=== PATIENT | male | born 1985 | race American Indian/Alaskan Native ===

== ENCOUNTER 2024-02-17 12:12 | Outpatient (CLI) | payer OTHER | END 2024-02-17 23:59 | disposition home or self-care (01) | LOC: MRI 12:12 | PROVIDERS: ATTEND Physician Assistant Medical | DX: S46.292A Other injury of muscle, fascia and tendon of other parts of biceps, left arm, initial encounter (principal); X58.XXXA Exposure to other specified factors, initial encounter; Y93.89 Activity, other specified; Y92.89 Other specified places as the place of occurrence of the external cause; Y99.8 Other external cause status | CPT/HCPCS: 73221 ==

== ENCOUNTER 2024-04-25 05:28 | Day surgery (SDC) | payer OTHER ==
[2024-04-13 11:47] LABS: BASOPHILS # (AUTO) 0.1 X10'3 (0-0.2); BASOPHILS % (AUTO) 1.1 % (0-1); EOSINOPHILS # (AUTO) 0.2 X10'3 (0-0.9); EOSINOPHILS % (AUTO) 3.6 % (0-6); LYMPHOCYTES # (AUTO) 2.3 X10'3 (1.1-4.8); MEAN CORPUSCULAR HEMOGLOBIN 31.8 PG (27.0-31.0); MEAN CORPUSCULAR HGB CONC 34.7 g/dL (33.0-36.5); MEAN CORPUSCULAR VOLUME 91.6 FL (78-98); MEAN PLATELET VOLUME 7.3 FL (7.4-10.4); MONOCYTES # (AUTO) 0.7 X10'3 (0-0.9); MONOCYTES % (AUTO) 11.3 % (2-12); NEUTROPHILS # (AUTO) 3.2 X10'3 (1.8-7.7); PRE OP HEMATOCRIT 52.2 % (42.0-52.0); PRE OP PLATELET COUNT 214 X10'3 (140-440); PRE OP WHITE BLOOD COUNT 6.6 10'3 (4.8-10.8); RED CELL DISTRIBUTION WIDTH 13.5 % (11.5-14.5)
[2024-04-13 11:52] LABS: PRE OP HEMOGLOBIN 18.1 g/dL (14.0-17.9)
[2024-04-13 12:10] LABS: PRE OP PROTIME 10.7 SECONDS (9.0-12.0)
[2024-04-13 12:20] LABS: ALBUMIN/GLOBULIN RATIO 1.3 (1.1-1.5); ALKALINE PHOSPHATASE 83 IU/L (46-116); BLOOD UREA NITROGEN 12 MG/DL (7-18); BUN/CREATININE RATIO 9.4 (10.0-20.0); CALCIUM 9.7 MG/DL (8.5-10.1); CHLORIDE 101 MMOL/L (99-107); CREATININE 1.27 MG/DL (0.60-1.10); PRE OP ALT 54 U/L (30-65); PRE OP ANION GAP 8 (8-16); PRE OP AST 23 U/L (10-37); PRE OP BILIRUB, TOTAL 0.8 MG/DL (0.0-1.0); PRE OP GLUCOSE 84 MG/DL (70-104); PRE OP POTASSIUM 4.6 MMOL/L (3.4-5.1); PRE OP SODIUM 138 MMOL/L (135-145); TOTAL PROTEIN 7.2 G/DL (6.4-8.2); eGFR 63 ML/MIN
[~2024-04-25] VITALS: Ht 170.2 cm; Wt 108.9 kg
[2024-04-25] VITALS (12 sets, daily range): BP systolic 113–141; BP diastolic 69–96; PULSE 66–84; RESP 10–21; TEMP 97.7; O2SAT 91–96
[~2024-04-25 05:28] MED LIST: TESTOSTERONE IM
[2024-04-25] MEDS ORDERED: ringers solution, lacted 1,000 ML IV SCH ×2 (05:30→08:40)
[2024-04-25] MEDS: tranexamic acid 1gm/0.7% sal. 100 ML IV ONE (06:05)
[2024-04-25] MEDS: ceFAZolin 2gm in dextrose, iso 50 ML IV ONE (06:05)
[2024-04-25] MEDS: famotidine 20mg tablet PO ONE (06:45)
[2024-04-25] MEDS ORDERED: vancomycin 1,000mg inj ONE (06:54)
[2024-04-25] MEDS ORDERED: fentaNYL /PF 50mcg/ml 5ml ampule ONE (07:14)
[2024-04-25] MEDS ORDERED: MIDAZolam 1 MG/ML 5ML VIAL ONE (07:14)
[2024-04-25] MEDS ORDERED: succinylcholine 20mg/ml inj IV ONE (07:15)
[2024-04-25] MEDS ORDERED: dexamethasone sod phosphate 4mg/ml inj. ONE (07:15)
[2024-04-25] MEDS ORDERED: propofol inj 20 ML IV ONE (07:15)
[2024-04-25] MEDS ORDERED: ondansetron/PF 4mg/2ml inj ONE (07:15)
[2024-04-25] MEDS ORDERED: acetaminophen 1,000mg/100ml IV 100 ML IV ONE ×2 (07:15→07:21)
[2024-04-25] MEDS ORDERED: LIDOcaine 2% (20mg/ml) 5ml vial ONE (07:18)
[2024-04-25] MEDS ORDERED: ROPIVAcaine 0.5% (5mg/ml) 30ml vial ONE ×2 (07:19)
[2024-04-25] MEDS ORDERED: sevoflurane 250ml liquid IH ONE (07:22)
[2024-04-25] MEDS ORDERED: enalaprilat 1.25mg/ml 2ml vial IV PRN (08:40)
[2024-04-25] MEDS ORDERED: morphine 4 MG/ML inj SYRINge IV PRN (08:40)
[2024-04-25] MEDS ORDERED: ondansetron/PF 4mg/2ml inj IV PRN (08:40)
[2024-04-25] MEDS ORDERED: meperidine/PF 25mg/ml syringe IV PRN ×2 (08:40)
[2024-04-25] MEDS ORDERED: hydrALAZINE 20mg/ml inj. IV PRN (08:40)
[2024-04-25] MEDS ORDERED: morphine 2 MG/ML inj. syringe IV PRN (08:40)
[2024-04-25] MEDS ORDERED: ceFAZolin 1000mg inj ONE (09:01)
[2024-04-25] MEDS: vancomycin 1,000mg inj IVT ONE (10:05)
== END 2024-04-25 12:42 | disposition home or self-care (01) ==
LOC: PAS 05:28
PROVIDERS: ATTEND Specialist
DX: S46.212A Strain of muscle, fascia and tendon of other parts of biceps, left arm, initial encounter (principal); Z79.899 Other long term (current) drug therapy; Z79.01 Long term (current) use of anticoagulants; Z98.890 Other specified postprocedural states; X58.XXXA Exposure to other specified factors, initial encounter; Y93.89 Activity, other specified; Y92.89 Other specified places as the place of occurrence of the external cause; Y99.8 Other external cause status; Z72.89 Other problems related to lifestyle; Z88.1 Allergy status to other antibiotic agents; G89.18 Other acute postprocedural pain
CPT/HCPCS: 24342; 36415; 64417; 71046; 73070; 80053; 82948; 85025; 85610; 85730; 86885; 86900; 86901; 93005; A6222; C1713; J0131; J0330; J0690; J1100; J2003; J2250; J2405; J2704; J2795; J3010; J3370; J3490; J7030; J7120; Z7506; Z7508; Z7512; 76000; A4215; A4565; A4615; A4618; A6253; A6449; A6455; A7000